=== PATIENT | female | born 1940 | race Caucasian/White ===

== ENCOUNTER 2017-08-03 14:13 | Emergency (ER) | payer MEDICARE, OTHER ==
[~2017-08-03 14:13] MED LIST: BAYER CHEWABLE81 MG PO; CARDIZEM CD120 MG PO; FISH OIL 1,0001 CA1 PO; MACRODANTIN100 MG PO; MULTAQ400 MG PO; PLAVIX75 MG PO; PULMICORT FLEX90 MCG IH; VITAMIN B-625 MG PO
[2017-08-03 16:00] LABS: BASOPHILS 0.1 % (0-2); EOSINOPHILS 0 % (0-7); HEMATOCRIT 39.1 % (36.0-48.0); HEMOGLOBIN 13.1 g/dL (12-16); IMMATURE GRANULOCYTES 0.8 % (0-5); LYMPHOCYTES 6.5 % (15-50); MCH 28.1 pg (26.0-34.0); MCHC 33.5 g/dL (31.0-37.0); MCV 83.9 fL (80.0-100.0); MEAN PLATELET VOLUME 8.4 fL (7.4-10.4); MONOCYTES 2.3 % (2-11); NEUTROPHILS 90.3 % (40-80); PLATELET COUNT 219 10x3/uL (130-400); RBC 4.66 10x6/uL (4.00-5.40); WBC 11.2 10x3/uL (4.8-10.8)
[2017-08-03 16:17] LABS: ALBUMIN 3.6 g/dL (3.4-5.0); ANION GAP 13.6 mmol/L (8-16); BILIRUBIN - TOTAL 0.71 mg/dL (0.2-1.3); CALCIUM 9.1 mg/dL (8.5-10.1); CARBON DIOXIDE 26.5 mmol/L (21.0-32.0); POTASSIUM - SERUM 4.1 mmol/L (3.5-5.1); PROTEIN - SERUM 6.8 g/dL (6.4-8.2)
== END 2017-08-03 17:12 | disposition home or self-care (01) ==
LOC: D.ER 14:13
PROVIDERS: Physician Assistant Medical
DX: J20.9 Acute bronchitis, unspecified (principal); I10 Essential (primary) hypertension

== ENCOUNTER 2017-08-06 10:29 | Emergency (ER) | payer MEDICARE, OTHER ==
[~2017-08-06] VITALS: Ht 167.6 cm; Wt 61.4 kg
[2017-08-06 10:54] VITALS: Ht 167.6 cm; Wt 61.4 kg
[2017-08-06] MEDS ORDERED: LIPITOR10 MG PO (11:01)
[2017-08-06] MEDS ORDERED: METOPROLOL TART25 MG PO (11:01)
[2017-08-06 11:44] LABS: BASOPHILS 0.1 % (0-2); EOSINOPHILS 0.1 % (0-7); HEMOGLOBIN 14.4 g/dL (12-16); IMMATURE GRANULOCYTES 0.7 % (0-5); LYMPHOCYTES 17.3 % (15-50); MCH 28.2 pg (26.0-34.0); MCHC 33.5 g/dL (31.0-37.0); MCV 84.1 fL (80.0-100.0); MEAN PLATELET VOLUME 10.1 fL (7.4-10.4); MONOCYTES 10.9 % (2-11); NEUTROPHILS 70.9 % (40-80); PLATELET COUNT 269 10x3/uL (130-400); RBC 5.11 10x6/uL (4.00-5.40); RDW 14.4 % (11.5-14.5); WBC 15.1 10x3/uL (4.8-10.8)
[2017-08-06 11:46] LABS: INR 0.94 (0.85-1.17); PROTIME 12.2 SECONDS (11.6-15.0)
[2017-08-06 12:16] LABS: ALKALINE PHOSPHATASE 113 U/L (46-116); ALT (SGPT) 28 U/L (10-68); CALC OSMOLALITY 282 mosm/kg (275-300); CALCIUM 9.4 mg/dL (8.5-10.1); CARBON DIOXIDE 24.7 mmol/L (21.0-32.0); CHLORIDE - SERUM 105 mmol/L (98-107); GLUCOSE 100 mg/dL (74-106); POTASSIUM - SERUM 3.3 mmol/L (3.5-5.1); PROTEIN - SERUM 7.1 g/dL (6.4-8.2); SODIUM 140 mmol/L (136-145); UREA NITROGEN 23 mg/dL (7-18); eGFR NON AFRICAN AMERICAN 57 mL/min (90-120)
[2017-08-06 12:21] LABS: APTT < 20.0 SECONDS (22.8-39.4)
[2017-08-06 12:24] LABS: CREATINE KINASE 49 UL (21-215); THYROID STIMULATING HORMONE 1.73 uIU/mL (0.36-3.74); TROPONIN-I < 0.017 ng/mL (0.000-0.060)
[2017-08-06 12:45] LABS: APPEARANCE HAZY (CLEAR); BILIRUBIN NEGATIVE (NEGATIVE); COLOR YELLOW (YELLOW); GLUCOSE NEGATIVE (NEGATIVE); KETONE NEGATIVE (NEGATIVE); NITRITE NEGATIVE (NEGATIVE); PROTEIN NEGATIVE (NEGATIVE); SPECIFIC GRAVITY 1.015 (1.005-1.020); UROBILINOGEN NORMAL (NORMAL)
[2017-08-06] MEDS ORDERED: LEVAQUIN500 MG PO (13:46)
[2017-08-06 14:15] VITALS: BP 154/73
== END 2017-08-06 14:20 | disposition home or self-care (01) ==
LOC: D.ER 10:29
PROVIDERS: Family Medicine
DX: J20.9 Acute bronchitis, unspecified (principal); R05 Cough; R09.89 Other specified symptoms and signs involving the circulatory and respiratory systems; I45.10 Unspecified right bundle-branch block

== ENCOUNTER → 2018-12-09 08:21 | Outpatient (CLI) | payer MEDICARE, BC ==
[2017-08-06 10:54] VITALS: BMI 21.8
[~2018-12-09 08:21] MED LIST changes: +LEVAQUIN500 MG PO; +LIPITOR10 MG PO; +METOPROLOL TART25 MG PO
== END | disposition home or self-care (01) ==
LOC: D.RT 08:21
PROVIDERS: ATTEND Internal Medicine Pulmonary Disease
DX: J45.909 Unspecified asthma, uncomplicated (principal)

== ENCOUNTER 2019-02-19 23:07 | Inpatient (IN) | payer MEDICARE, BC ==
[~2019-02-19] VITALS: Ht 167.6 cm; Wt 62.7 kg
--- NOTE | ~2019-02-19 | EC ---
PATIENT:MARI LUGO DATE OF SERVICE: 02/20/19 SEX: F MEDICAL RECORD: [id number] DATE OF : 40 LOCATION:D. D.211 AGE OF PATIENT: 78 ADMISSION DATE: 02/20/19 REFERRING PHYSICIAN: INTERPRETING PHYSICIAN: JOHNATHAN RAMEY MD ECHOCARDIOGRAM REPORT ECHO CHARGES 4 ECHO COMPLETE Date: 02/21/19 CLINICAL DIAGNOSIS: HTN, CP, HX:ABLATION IN 2012 ECHOCARDIOGRAPHIC MEASUREMENTS (adult normal given) AC root (d.<3.7cm) 2.6 cm LV Septum d (<1.2 cm> 1.3 cm Valve Excursion 1.4 cm LV Septum (systole) 1.7 cm Left Atria (s.<4.0cm> 3.1 cm LVPW d(<1.2cm) 0.9 cm RV (d.<2.3cm) 1.9 cm LVPW (sytole) 1.6 cm LV diastole(<5.6CM) 5.2 cm MV E-F(>70mm/sec) cm LV systole 3.4 cm LVOT Diameter 1.6 cm MV exc.(>10mm) cm Est.ejection fraction (50-75%) % DOPPLER: LVIT cm/sec A 87 cm/sec E 102 cm/sec LA cm/sec RVSP mmHg LVOT 111 cm/sec AOP1/2T 39.9 m/s Asc. Ao 154 cm/sec RVOT 101 cm/sec RA cm/sec PA 101 cm/sec AV Gradient Peak 9.5 mmHg AV Mean 4.6 mmHg AV Area 1.6 cm MV Gradient Peak 7.1 mmHg MV Mean 3.8 mmHg MV Area cm COMMENTS: Teacher Instrumental: Michelle WATERMAN Meter Engineer: 1 Dr. Ramey TAPE# PACS Pericardial Effusion N DATE OF SERVICE: 02/21/2019 FINDINGS: 1. Left ventricular chamber size is within normal limits. Left ventricular systolic function is normal. Overall ejection fraction estimated at 55%. 2. Left atrium, right atrium, right ventricle chamber size is within normal limits. 3. Valvular structures have normal structure and motion. 4. Doppler interrogation reveals trace mitral regurgitation, mild tricuspid regurgitation, no other valvular insufficiency or stenosis. ECHOCARDIOGRAM REPORT [id number] MARI LUGO 5. No evidence of pericardial effusion or left ventricular thrombus. TRANSINT:[id number] Voice Confirmation ID: [id number] DOCUMENT ID: [id number] JOHNATHAN RAMEY MD CC: [id number] DICTATION DATE: 02/21/19 1253 PHOTOGRAPHIC PROCESSOR: 02/21/19 1717 ADM IN [facility] [id number] [place] [address]
[2019-02-19] MEDS ORDERED: ZYRTEC10 MG PO (23:27)
[2019-02-19 23:41] LABS: HEMATOCRIT 38.2 % (36.0-48.0); HEMOGLOBIN 12.4 g/dL (12-16); LYMPHOCYTES 10.2 % (15-50); MCH 27.3 pg (26.0-34.0); MCHC 32.5 g/dL (31.0-37.0); MCV 84.1 fL (80.0-100.0); MEAN PLATELET VOLUME 7.9 fL (7.4-10.4); NEUTROPHILS 85.6 % (40-80); PLATELET COUNT 272 10x3/uL (130-400); RBC 4.54 10x6/uL (4.00-5.40); RDW 14.2 % (11.5-14.5); WBC 11.5 10x3/uL (4.8-10.8)
[2019-02-19 23:46] LABS: CALC OSMOLALITY 282 mosm/kg (275-300); CALCIUM 8.8 mg/dL (8.5-10.1); CARBON DIOXIDE 24.4 mmol/L (21.0-32.0); CHLORIDE - SERUM 103 mmol/L (98-107); GLUCOSE 147 mg/dL (74-106); POTASSIUM - SERUM 3.7 mmol/L (3.5-5.1); SODIUM 139 mmol/L (136-145); UREA NITROGEN 19 mg/dL (7-18); eGFR NON AFRICAN AMERICAN 57 mL/min (90-120)
[2019-02-19 23:47] LABS: APTT 25.1 SECONDS (22.8-39.4); INR 1.07 (0.85-1.17); PROTIME 13.4 SECONDS (11.6-15.0)
[2019-02-20 00:05] LABS: ALBUMIN 3.4 g/dL (3.4-5.0); ALKALINE PHOSPHATASE 125 U/L (46-116); ALT (SGPT) 30 U/L (10-68); BILIRUBIN - TOTAL 0.63 mg/dL (0.2-1.3); CKMB 1.6 U/L (0.0-3.6); CREATINE KINASE 69 UL (21-215); PRO BNP 775 pg/mL (0-450); PROTEIN - SERUM 6.2 g/dL (6.4-8.2); TROPONIN-I < 0.017 ng/mL (0.000-0.060)
--- NOTE | 2019-02-20 01:14 | NUR ---
PT AMBULATED TO RESTROOM INDEPENDENTLY.
[2019-02-20 02:30] VITALS: BP 155/52; BMI 22.3
[2019-02-20 04:00] VITALS: BP 155/52
[2019-02-20 06:49] LABS: CKMB 1.4 U/L (0.0-3.6); CREATINE KINASE 55 UL (21-215); TROPONIN-I < 0.017 ng/mL (0.000-0.060)
--- NOTE | 2019-02-20 07:28 | NUR ---
REPORT RECEIVED FROM BUS DRIVER SCHOOL AND PATIENT CARE ASSUMED. PATIENT LAYING IN BED ON BACK AWAKE, ALERT AND ORIENTED X 4. PATIENT DENIES ANY NEEDS OR PAIN. PATIENT IS NPO AWAINTING CARDIOLOGY CONSULT. WILL CONTINUE WITH PLAN OF CARE. SR UP X 2 BED IN LOW POSITION AND CALL LIGHT IN REACH.
[2019-02-20 09:16] VITALS: Ht 167.6 cm; Wt 62.7 kg
[2019-02-20 10:39] VITALS: BP 153/68
[2019-02-20 11:55] LABS: CKMB 1.3 U/L (0.0-3.6); CREATINE KINASE 53 UL (21-215); TROPONIN-I < 0.017 ng/mL (0.000-0.060)
--- NOTE | 2019-02-20 13:00 | NUR ---
CALLED TO PATIENT ROOM. PATIENT COMPLAINS OF A HEADACHE AT A 8. VSS. MEDICATED PER MAR WITH TYLENOL 650 MG PO. PATIENT REPOSITIONED FOR COMFORT. AT BS. WILL CONTINUE TO MONITOR. SR UP X 2 BED IN LOW POSITION AND CALL LIGHT IN REACH.
[2019-02-20 13:19] VITALS: BP 136/51
--- NOTE | 2019-02-20 14:12 | NUR ---
PATIENT RESTING QUIETLY IN BED. WILL CONTINUE TO MONITOR. SR UP X 2 BED IN LOW POSITION AND CALL LIGHT IN REACH.
[2019-02-20 17:56] LABS: CREATINE KINASE 51 UL (21-215); TROPONIN-I 0.016 ng/mL (0.000-0.060)
[2019-02-20 18:10] VITALS: BP 138/51
--- NOTE | 2019-02-20 19:49 | NUR ---
RECEIVED BEDSIDE REPORT. PATIENT IS ALERT AND ORIENTED, RESTING COMFORTABLY I BED. RESPIRATIONS ARE EVEN AND UNLABORED. NO S/S OF DISTRESS. NO C/O PAIN. CALL LIGHT WITHIN REACH. DENIES NEEDS. WILL CPOC.
[2019-02-20 20:00] VITALS: BP 136/63
[2019-02-21] VITALS: BP 147/56
[2019-02-21 04:00] VITALS: BP 145/50
[2019-02-21 05:23] LABS: BASOPHILS 0.1 % (0-2); EOSINOPHILS 0.7 % (0-7); HEMATOCRIT 33.9 % (36.0-48.0); HEMOGLOBIN 10.9 g/dL (12-16); IMMATURE GRANULOCYTES 0.4 % (0-5); LYMPHOCYTES 27.5 % (15-50); MCH 27.1 pg (26.0-34.0); MCHC 32.2 g/dL (31.0-37.0); MCV 84.3 fL (80.0-100.0); MEAN PLATELET VOLUME 7.9 fL (7.4-10.4); MONOCYTES 13.6 % (2-11); NEUTROPHILS 57.7 % (40-80); RBC 4.02 10x6/uL (4.00-5.40); RDW 14.2 % (11.5-14.5)
[2019-02-21 05:31] LABS: PLATELET COUNT 187 10x3/uL (130-400); WBC 8.4 10x3/uL (4.8-10.8)
[2019-02-21 05:34] LABS: ANION GAP 11.3 mmol/L (8-16); CALCIUM 8.1 mg/dL (8.5-10.1); CARBON DIOXIDE 25.5 mmol/L (21.0-32.0); CREATININE - SERUM 0.8 mg/dL (0.6-1.3); POTASSIUM - SERUM 3.8 mmol/L (3.5-5.1)
--- NOTE | 2019-02-21 08:15 | NUR ---
PATIENT COMPLAINS OF A HEADACHE AT A 10 AND REQUESTING TYLENOL. PATIENT MEDICATED PER MAY WITH TYLENOL 650 MG PO. WILL CONTINUE TO MONITOR. SR UP X 2 BED IN LOW POSITION AND CALL LIGHT IN REACH.
[2019-02-21 09:06] VITALS: BP 158/52
--- NOTE | 2019-02-21 14:24 | NUR ---
PATIENT UP TO BR . GOT URINE SPECIMEN. PATIENT IS STABLE AND VSS. PATIENT DENIES ANY NEEDS OR PAIN. WILL CONTINUE TO MONITOR. SR UP X 2 BED IN LOW POSITION AND CALL LIGHT IN REACH.
[2019-02-21 14:25] LABS: APPEARANCE HAZY (CLEAR); COLOR YELLOW (YELLOW)
[2019-02-21 14:26] LABS: BILIRUBIN NEGATIVE (NEGATIVE); GLUCOSE NEGATIVE (NEGATIVE); KETONE NEGATIVE (NEGATIVE); NITRITE NEGATIVE (NEGATIVE); PROTEIN NEGATIVE (NEGATIVE); UROBILINOGEN NORMAL (NORMAL)
[2019-02-21 17:19] VITALS: BP 132/53
--- NOTE | 2019-02-21 19:30 | NUR ---
REPORT AND INITIAL ROUNDS COMPLETED. PT RESTING IN BED. NO DISTRESS. CPOC.
[2019-02-21 20:30] VITALS: BP 137/45
[2019-02-22 00:30] VITALS: BP 123/34
--- NOTE | 2019-02-22 06:39 | NUR ---
PT RESTING IN BED WITH NO DISTRESS. NO CHANGE FROM INITIAL SHIFT ASSESSMENT. CPOC. REPORT TO ONCOMING SHIFT.
[2019-02-22 06:42] VITALS: BP 146/54
[2019-02-22 07:01] LABS: BASOPHILS 0 % (0-2); EOSINOPHILS 1.3 % (0-7); HEMATOCRIT 36.2 % (36.0-48.0); HEMOGLOBIN 11.7 g/dL (12-16); IMMATURE GRANULOCYTES 0.3 % (0-5); MCH 27.3 pg (26.0-34.0); MCHC 32.3 g/dL (31.0-37.0); MCV 84.6 fL (80.0-100.0); MEAN PLATELET VOLUME 8.2 fL (7.4-10.4); MONOCYTES 15.8 % (2-11); NEUTROPHILS 51.6 % (40-80); PLATELET COUNT 213 10x3/uL (130-400); RBC 4.28 10x6/uL (4.00-5.40); RDW 14.4 % (11.5-14.5); WBC 6.4 10x3/uL (4.8-10.8)
[2019-02-22 07:02] LABS: ANION GAP 11.3 mmol/L (8-16); CALCIUM 8.6 mg/dL (8.5-10.1); CARBON DIOXIDE 26.5 mmol/L (21.0-32.0); CREATININE - SERUM 0.8 mg/dL (0.6-1.3); POTASSIUM - SERUM 3.8 mmol/L (3.5-5.1)
--- NOTE | 2019-02-22 07:10 | NUR ---
REPORT RECEVED FROM MOTOR ANALYST AND PATIENT CARE ASSUMED. PATIENT LAYING IN BED ON RT SIDE WITH EYES CLOSED AND BREATHING EVENLY. WILL CONTINUE WITH PLAN OF CARE . SR UP X 2 BED IN LOW POSITION AND CALL LIGHT IN REACH.
[2019-02-22 08:06] VITALS: BP 152/47
--- NOTE | 2019-02-22 14:38 | NUR ---
ORDERS RECEIEVED FOR DC. PATIENT IS STABLE AND VSS. PATIENT DENIES ANY NEEDS OR PAIN. WRITTEN AND VERBAL INSTRUCTIONS GIVEN PATIENT VERBALIZED UNDERSTANDING AND SIGNED DC INSTRUCTIONS. IV DCD WITHOUT DIFFICULTY WITH ENTIRE CATHETER INTACT. PRESSURE DRSG APPLIED. PATIENT IS DCD HOME FOR SELF CARE. PATIENT TO FRONT DOOR VIA WC AND ACCOMPATIED BY HOSPITAL PERSONNEL. PATIENT TO PRIVATE VEHICLE DRIVEN BY SPOUSE.
[2019-02-24 11:09] LABS: ANA REFLEX - DIRECT Negative (Negative); IMMUNOGLOBULIN A 82 mg/dL (64-422); IMMUNOGLOBULIN G 561 mg/dL (700-1600)
[2019-02-25 05:08] LABS: IGG SUBCLASS 1 303 mg/dL (248-810); IGG SUBCLASS 2 144 mg/dL (130-555); IGG SUBCLASS 3 22 mg/dL (15-102); IGG SUBCLASS 4 18 mg/dL (2-96); IGGS - IGG SERUM 583 mg/dL (700-1600)
[2019-02-26 03:06] LABS: IMMUNOGLOBULIN E 13 IU/mL (6-495)
== END 2019-02-22 14:44 | disposition home or self-care (01) | DRG 202 ==
LOC: D.ER 23:07 → D.M2 02-20 01:20 → OBSVTIME 02-20 01:20 → D.M2 02-20 01:20 → D.SDCHOLD 02-20 14:41 → D.M2 02-20 14:41
PROVIDERS: Family Medicine; Internal Medicine Pulmonary Disease; ADMIT Internal Medicine Nephrology; ATTEND Internal Medicine Nephrology
DX: J20.9 Acute bronchitis, unspecified (principal); N17.9 Acute kidney failure, unspecified; I48.0 Paroxysmal atrial fibrillation; I10 Essential (primary) hypertension; E78.5 Hyperlipidemia, unspecified; E03.9 Hypothyroidism, unspecified; K21.9 Gastro-esophageal reflux disease without esophagitis; R53.1 Weakness; T36.8X5A Adverse effect of other systemic antibiotics, initial encounter

== ENCOUNTER → 2019-07-22 12:51 | Outpatient (CLI) | payer MEDICARE, BC ==
[2019-02-20 09:16] VITALS: BMI 22.3
[~2019-07-22 12:51] MED LIST changes: +ZYRTEC10 MG PO
== END | disposition home or self-care (01) ==
LOC: D.LABREF 12:51
PROVIDERS: ATTEND Internal Medicine Pulmonary Disease
DX: Z11.59 Encounter for screening for other viral diseases (principal)

== ENCOUNTER → 2019-07-23 11:11 | Outpatient (CLI) | payer MEDICARE, BC ==
[2019-02-20 09:16] VITALS: BMI 22.3
[2019-07-23 12:17] LABS: ALBUMIN 3.8 g/dL (3.4-5.0); ALKALINE PHOSPHATASE 137 U/L (30-120); ALT (SGPT) 27 U/L (10-68); BILIRUBIN - TOTAL 0.59 mg/dL (0.2-1.3); CALC OSMOLALITY 279 mosm/kg (275-300); CALCIUM 9.2 mg/dL (8.5-10.1); CHLORIDE - SERUM 105 mmol/L (98-107); CREATININE - SERUM 0.7 mg/dL (0.6-1.3); GLUCOSE 102 mg/dL (74-106); PROTEIN - SERUM 6.9 g/dL (6.4-8.2); SODIUM 140 mmol/L (136-145); UREA NITROGEN 16 mg/dL (7-18); eGFR NON AFRICAN AMERICAN 85 mL/min (90-120)
[2019-07-23 13:13] LABS: BASOPHILS 0.3 % (0-2); EOSINOPHILS 5.2 % (0-7); HEMATOCRIT 37.6 % (36.0-48.0); HEMOGLOBIN 11.8 g/dL (12-16); IMMATURE GRANULOCYTES 0.2 % (0-5); LYMPHOCYTES 33.8 % (15-50); MCHC 31.4 g/dL (31.0-37.0); MEAN PLATELET VOLUME 8.6 fL (7.4-10.4); MONOCYTES 10.8 % (2-11); NEUTROPHILS 49.7 % (40-80); RBC 4.37 10x6/uL (4.00-5.40); RDW 13.1 % (11.5-14.5); WBC 6.1 10x3/uL (4.8-10.8)
[2019-07-23 13:18] LABS: PLATELET COUNT 308 10x3/uL (130-400)
[2019-07-23 14:40] LABS: ERYTHROCYTE SEDIMENTATION RATE 9 mm/hr (0-30)
== END | disposition home or self-care (01) ==
LOC: D.HCCECHO 11:11
PROVIDERS: ATTEND Internal Medicine Cardiovascular Disease
DX: R06.00 Dyspnea, unspecified (principal); J45.909 Unspecified asthma, uncomplicated; D80.1 Nonfamilial hypogammaglobulinemia; N31.9 Neuromuscular dysfunction of bladder, unspecified; N30.31 Trigonitis with hematuria; N30.21 Other chronic cystitis with hematuria

== ENCOUNTER 2019-11-08 14:22 | Emergency (ER) | payer MEDICARE, BC ==
[~2019-11-08] VITALS: Ht 167.6 cm; Wt 60.0 kg
[2019-11-08 14:28] VITALS: Ht 167.6 cm; Wt 60.0 kg
[2019-11-08 15:04] LABS: BASOPHILS 0.2 % (0-2); EOSINOPHILS 1.8 % (0-7); HEMATOCRIT 36.2 % (36.0-48.0); IMMATURE GRANULOCYTES 0.2 % (0-5); LYMPHOCYTES 35.5 % (15-50); MCH 28.3 pg (26.0-34.0); MCHC 33.1 g/dL (31.0-37.0); MCV 85.4 fL (80.0-100.0); MEAN PLATELET VOLUME 8.1 fL (7.4-10.4); MONOCYTES 11.4 % (2-11); NEUTROPHILS 50.9 % (40-80); PLATELET COUNT 255 10x3/uL (130-400); RBC 4.24 10x6/uL (4.00-5.40); RDW 13.2 % (11.5-14.5)
[2019-11-08 15:12] LABS: APTT 27.3 SECONDS (22.8-39.4); CALC OSMOLALITY 282 mosm/kg (275-300); CALCIUM 9.7 mg/dL (8.5-10.1); CHLORIDE - SERUM 105 mmol/L (98-107); CREATININE - SERUM 0.9 mg/dL (0.6-1.3); GLUCOSE 112 mg/dL (74-106); INR 1.05 (0.85-1.17); PROTIME 13.6 SECONDS (11.6-15.0); SODIUM 141 mmol/L (136-145); UREA NITROGEN 16 mg/dL (7-18); eGFR NON AFRICAN AMERICAN 64 mL/min (90-120)
[2019-11-08 15:29] LABS: ALKALINE PHOSPHATASE 117 U/L (30-120); ALT (SGPT) 27 U/L (10-68); BILIRUBIN - TOTAL 0.95 mg/dL (0.2-1.3); CKMB 0.9 U/L (0.0-3.6); CREATINE KINASE 66 UL (21-215); MAGNESIUM - SERUM 1.6 mg/dL (1.8-2.4); PROTEIN - SERUM 6.8 g/dL (6.4-8.2)
[2019-11-08 15:42] LABS: TROPONIN-I < 0.017 ng/mL (0.000-0.060)
[2019-11-08] MEDS ORDERED: COZAAR50 MG PO (16:13)
[2019-11-08 16:55] VITALS: BP 121/55
== END 2019-11-08 16:55 | disposition home or self-care (01) ==
LOC: D.ER 14:22
PROVIDERS: Family Medicine
DX: I10 Essential (primary) hypertension (principal); R42 Dizziness and giddiness; J45.909 Unspecified asthma, uncomplicated; E03.9 Hypothyroidism, unspecified; K21.9 Gastro-esophageal reflux disease without esophagitis; R06.02 Shortness of breath; R07.89 Other chest pain

== ENCOUNTER 2019-11-14 19:17 | Inpatient (IN) | payer MEDICARE, BC ==
[~2019-11-14] VITALS: Ht 167.6 cm; Wt 58.2 kg
--- NOTE | ~2019-11-14 | CN ---
PATIENT NAME:MARI LUGO MEDICAL RECORD: [id number] : 40 LOCATION:D. D.2116 ADMIT DATE: 11/14/19 ACCOUNT: [id number] CONSULTING PHYSICIAN: SASKIA JOSHI MD REFERRING PHYSICIAN: CHRIS EUCEDA MD DATE OF CONSULTATION: 11/15/2019 HISTORY OF PRESENT ILLNESS: A 79-year-old female with a history of atrial fibrillation status post ablation 7 years ago. She has had onset of AFib symptomology on the day of admission. Has been using her updrafts as well as self-restricting her own potassium intake secondary to reading inserts of her Cozaar that caused that has hyperkalemia may be a problem. Found to be in AFib with rapid ventricular response. Currently, back in sinus rhythm, at this point feels well. We are asked to see her concerning her cardiovascular status. PAST MEDICAL HISTORY: Includes; 1. History of hypertension. 2. Atrial fibrillation. 3. Dyslipidemia. 4. Obstructive pulmonary disease. MEDICATIONS: Include losartan 50 mg p.o. every day, atorvastatin 10 mg p.o. every day, metoprolol 25 every day, Multaq 400 b.i.d., Zyrtec 10 every day, Pulmicort inhaler 80 mcg b.i.d. ALLERGIES: No allergies. SOCIAL HISTORY: Nonsmoker, nondrinker. Easily takes care of her ADLs. Does exercise on a regular basis. REVIEW OF SYSTEMS: The patient reports easy bruising but reports no swollen glands. The patient reports no fever, no night sweats, no significant weight gain, no significant weight loss. No significant exercise tolerance. The patient reports no dry eyes, no irritation, no vision change. Patient reports no difficulty hearing and no ear pain. Patient reports no frequent nose bleeds or nose and sinus problems. Patient reports on arm pain on exertion. No shortness of breath while lying down. No history of heart murmur. Patient reports no cough, no wheezing or coughing up blood. Patient reports no abdominal pain, no vomiting. Normal appetite. No diarrhea and not vomiting blood. No nausea and no constipation. Patient reports no incontinence. No difficulty urinating. No hematuria. No increased frequency. Patient reports no muscle aches. No weakness, no arthralgias, no back pain. No swelling of the extremities. Patient reports no abnormal mole, no jaundice, no rashes. Reports no loss of consciousness. No weakness and no numbness. No seizures, dizziness, or headaches. The patient reports no depression, no sleep disturbance, feeling safe in a relationship and no alcohol abuse. Patient reports on fatigue. Reports no runny nose or sinus pressure. No itching, no hives, and no frequent sneezing. PHYSICAL EXAMINATION: GENERAL: Well-developed, well-nourished, appears younger than stated age. VITAL SIGNS: Blood pressure 134/52, pulse 71 and regular. HEENT: Normocephalic, atraumatic. NECK: No bruits noted. HEART: Regular. A II/ systolic ejection murmur. CONSULT REPORT [id number] MARI LUGO LUNGS: Good air excursion at this point. ABDOMEN: Soft, nontender. EXTREMITIES: Pulses 2+ with no edema. IMPRESSION: Atrial fibrillation, probably related to hypokalemia, self-induced at this point, really no diarrhea or losses of potassium, this is normal. At this point, we will supplement orally at home. No contraindication to discharge from my standpoint. TRANSINT:[id number] Voice Confirmation ID: [id number] DOCUMENT ID: [id number] SASKIA JOSHI MD CC: [id number] DICTATION DATE: 11/15/19 1023 PIT FURNACE MELTER: 11/15/19 1505 DIS IN 11/15/19 [facility] [address] [place] [address]
[~2019-11-14 19:17] MED LIST changes: +COZAAR50 MG PO
[2019-11-14 19:48] LABS: BASOPHILS 0.3 % (0-2); EOSINOPHILS 2.4 % (0-7); HEMATOCRIT 38.8 % (36.0-48.0); HEMOGLOBIN 13.1 g/dL (12-16); IMMATURE GRANULOCYTES 0.3 % (0-5); LYMPHOCYTES 39.6 % (15-50); MCH 28.2 pg (26.0-34.0); MCHC 33.8 g/dL (31.0-37.0); MCV 83.4 fL (80.0-100.0); MEAN PLATELET VOLUME 8.1 fL (7.4-10.4); MONOCYTES 8.9 % (2-11); NEUTROPHILS 48.5 % (40-80); PLATELET COUNT 238 10x3/uL (130-400); RBC 4.65 10x6/uL (4.00-5.40); WBC 7.4 10x3/uL (4.8-10.8)
[2019-11-14 19:58] LABS: CALC OSMOLALITY 272 mosm/kg (275-300); CALCIUM 9.8 mg/dL (8.5-10.1); CHLORIDE - SERUM 101 mmol/L (98-107); CREATININE - SERUM 0.9 mg/dL (0.6-1.3); GLUCOSE 108 mg/dL (74-106); SODIUM 135 mmol/L (136-145); UREA NITROGEN 17 mg/dL (7-18); eGFR NON AFRICAN AMERICAN 64 mL/min (90-120)
[2019-11-14 19:59] LABS: APTT 25.3 SECONDS (22.8-39.4)
[2019-11-14 20:00] LABS: D-DIMER-QUANTITATIVE 0.39 ug/mLFEU (0.20-0.54)
[2019-11-14 20:03] LABS: INR 0.94 (0.85-1.17); PROTIME 12.5 SECONDS (11.6-15.0)
[2019-11-14 20:16] LABS: ALBUMIN 4.3 g/dL (3.4-5.0); ALKALINE PHOSPHATASE 137 U/L (30-120); ALT (SGPT) 28 U/L (10-68); BILIRUBIN - TOTAL 0.63 mg/dL (0.2-1.3); CREATINE KINASE 67 UL (21-215); MAGNESIUM - SERUM 1.5 mg/dL (1.8-2.4); PRO BNP 276 pg/mL (0-450); PROTEIN - SERUM 7.4 g/dL (6.4-8.2); TROPONIN-I < 0.017 ng/mL (0.000-0.060)
[2019-11-14 20:30] VITALS: BP 153/66
--- NOTE | 2019-11-14 20:44 | NUR ---
PT ASSISTED UP TO BEDSIDE COMMODE AND URINE SPECIMEN SENT TO LAB. PT DENIES ANY FURTHER NEEDS AT THIS TIME, CALL LIGHT IN REACH. WILL CONTINUE TO MONITOR.
[2019-11-14 21:39] LABS: BILIRUBIN NEGATIVE (NEGATIVE); KETONE NEGATIVE (NEGATIVE); NITRITE NEGATIVE (NEGATIVE); UROBILINOGEN NORMAL mg/dL (< 2)
--- NOTE | 2019-11-14 22:06 | NUR ---
REPORT CALLED FROM ER. PT WILL BE ON CARDIZEM DRIP AND CURRENTLY IS CAF '.
--- NOTE | 2019-11-14 22:15 | NUR ---
ADMIT TO ROOM 2115 FROM ER. ALERT/ORIENTED. HAS GONE HOME FOR THE NIGHT. AMBULATORY TO BED. CARDIZEM DRIP AT 10ML/HR INFUSING TO RIGHT WRIST. NONLABORED RESPIRATIONS ON ROOM AIR. ADMISSION HISTORY AND ASSESSMENT COMPLETED. HOME MEDS REVIEWED AND UPDATED. ERICK MACE APRN IN ROOM TO ASSESS.
[2019-11-14 22:50] VITALS: BP 126/70
--- NOTE | 2019-11-14 23:00 | NUR ---
PT RESTING WITH NO DISTRESS. TELEMETRY SHOWING U/CAF 90-115. CPOC.
[2019-11-14 23:24] VITALS: BP 126/70; Ht 167.6 cm; Wt 58.2 kg
[2019-11-15 02:07] VITALS: BP 119/46
[2019-11-15 04:39] LABS: BASOPHILS 0.3 % (0-2); EOSINOPHILS 2.6 % (0-7); HEMOGLOBIN 11.2 g/dL (12-16); IMMATURE GRANULOCYTES 0.2 % (0-5); MCH 28.3 pg (26.0-34.0); MCHC 33.9 g/dL (31.0-37.0); MCV 83.3 fL (80.0-100.0); MEAN PLATELET VOLUME 8.1 fL (7.4-10.4); MONOCYTES 11.5 % (2-11); NEUTROPHILS 50.4 % (40-80); PLATELET COUNT 243 10x3/uL (130-400); RBC 3.96 10x6/uL (4.00-5.40); RDW 13.2 % (11.5-14.5); WBC 6.2 10x3/uL (4.8-10.8)
[2019-11-15 05:08] LABS: ALBUMIN 3.3 g/dL (3.4-5.0); ALKALINE PHOSPHATASE 99 U/L (30-120); ALT (SGPT) 23 U/L (10-68); BILIRUBIN - TOTAL 0.78 mg/dL (0.2-1.3); CALC OSMOLALITY 279 mosm/kg (275-300); CALCIUM 8.8 mg/dL (8.5-10.1); CARBON DIOXIDE 22.1 mmol/L (21.0-32.0); CHLORIDE - SERUM 106 mmol/L (98-107); CHOL - HDL RATIO 2.2 ratio (2.3-4.1); CHOLESTEROL, TOTAL 134 mg/dL (0-200); CKMB 0.8 U/L (0.0-3.6); CREATINE KINASE 50 UL (21-215); CREATININE - SERUM 0.7 mg/dL (0.6-1.3); GLUCOSE 114 mg/dL (74-106); HDL CHOLESTEROL 61 mg/dL (32-96); LDL CHOLESTEROL 65 mg/dL (0-100); LDL-HDL RATIO 1.1 ratio (1.5-3.5); MAGNESIUM - SERUM 1.5 mg/dL (1.8-2.4); PHOSPHOROUS 4.1 mg/dL (2.5-4.9); PROTEIN - SERUM 5.8 g/dL (6.4-8.2); SODIUM 139 mmol/L (136-145); THYROID STIMULATING HORMONE 1.13 uIU/mL (0.36-3.74); TRIGLYCERIDE 44 mg/dL (30-200); UREA NITROGEN 15 mg/dL (7-18); eGFR NON AFRICAN AMERICAN 85 mL/min (90-120)
[2019-11-15 05:10] LABS: POTASSIUM - SERUM 3.8 mmol/L (3.5-5.1); TROPONIN-I < 0.017 ng/mL (0.000-0.060)
[2019-11-15 05:51] VITALS: BP 113/44
[2019-11-15 07:00] VITALS: BP 134/52
--- NOTE | 2019-11-15 09:20 | NUR ---
CALLED [facility] AND SPOKE WITH ITFFANIE PHARMACIST, NEW ORDER FOR 10MEQ OF K.
--- NOTE | 2019-11-15 11:26 | NUR ---
MAG GIVEN FOR LOW MAG. PT RESTING COMFORTABLY IN BED, DENIES ANY NEEDS AT THIS TIME. MONITOR SHOWING SR WITH RATE OF 72. RT FA IV SL. RESP EVEN AND NONLABORED ON RA. CALL LIGHT IN REACH, NAD NTOED, WILL CONTINUE TO MONITOR.
--- NOTE | 2019-11-15 12:53 | MORECARE ---
CASE MANAGEMENT DISCHARGE SUMMARY PATIENT: MARI PANDEY UNIT: [id number] ADM DATE: 11/14/19 AGE: 79 : 40 SEX: F ROOM/BED: D.9143 AUTHOR: WU,DOC PHYSICIAN: REFERRING PHYSICIAN: CHRIS EUCEDA MD DATE OF SERVICE: 11/15/19 Discharge Plan Patient Name: MARI PANDEY Facility: [facility]:[place] : 1940 Planned Disposition: Home Anticipated Discharge Date: 11/15/19 Discharge Date: Expected LOS: 1 Initial Reviewer: HUSSAIN Initial Review Date: 11/14/2019 Generated: 11/15/19 1:52 pm DCP- Discharge Planning Updated by [email or web address]: Emigdio Tiwari on 11/15/19 11:[address] Patient Name: MARI PANDEY Admission Status: ER Accout number: [id number] Admission Date: 11-14-2019 : 1940 Admission Diagnosis: Attending: SINDHU Current LOS: 1 Anticipated DC Date: Planned Disposition: Primary Insurance: MEDICARE A & B Discharge Planning Comments: CM met with patient to complete initial dc planning assessment. CM educated patient on the CM role and verbal consent given by patient to complete assessment. CM verified patient's address, phone number, and emergency contact phone numbers. Patient lives at home with spouse, Vinny Pandey. At discharge patient plans to return home and feels this is a safe discharge. CM discussed availability of home health, rehab services, and medical equipment. Patient declines HH services at this time as well as DME, SNF, and IPR. No other needs identified at this time. Transportation provider at discharge will be her , Vinny Pandey [phone] or [phone]. CM will continue to follow and will assist as needed with dc plans/needs. Metal Treater: Emigdio Tiwari DCPIA - Discharge Planning Initial Assessment Updated by [id number]: Emigdio Tiwari on 11/15/19 12:51 pm * Is the patient Alert and Oriented? Yes * How many steps to enter\exit or inside your home? 3/2 * PCP Shayan Kaur * Pharmacy [facility] * Preadmission Environment Home with Family * ADLs Independent * Equipment Nebulizer * List name and contact numbers for known caregivers / representatives who currently or will assist patient after discharge: Vinny Pandey [phone] / [phone] * Verbal permission to speak to the caregivers and representatives has been obtained from the patient. Yes * Community resources currently utilized None * Additional services required to return to the preadmission environment? No * Can the patient safely return to the preadmission environment? Yes * Has this patient been hospitalized within the prior 30 days at any hospital? No Coverage Notice Reviewer: HUSSAIN Tiwari Notice Issued Date-Time: 11/15/2019 12:35 Notice Type: IM Discharge Notice Notice Delivered To: Patient Relationship to Patient: Cdl Dedicated Truck Driver Name: Delivery Method: HAND - Hand Delivered Bhavna Days: Prior Verbal Notification: Recipient Understood Notice: Yes Recipient Signature: Yes Med Rec Note Co-signed by Attending: Coverage Notice Comment: IMM Explained, understood, signed, copied and given to patient, original placed on chart. Reviewer: [id number] Tiwari Notice Issued Date-Time: 11/15/2019 12:35 Notice Type: Patient Choice Letter Notice Delivered To: Patient Relationship to Patient: Cdl Dedicated Truck Driver Name: Delivery Method: HAND - Hand Delivered Bhavna Days: Prior Verbal Notification: Recipient Understood Notice: Yes Recipient Signature: Yes Med Rec Note Co-signed by Attending: Coverage Notice Comment: Refusal of HH, IPR, SNF, and DME Patient Name: MARI PANDEY Page [phone] at 1253 All edits/amendments must be made on the electronic document DICTATION DATE: 11/15/19 1252 COMPLIANCE MGR: BIJAL 11/15/19 1252 RPT#: [id number] DC DATE: STATUS: ADM IN [facility] [address] [place] [address] END OF REPORT
--- NOTE | 2019-11-15 13:16 | NUR ---
PROVIDED VERBAL AND WRITTEN DISCHARGE TEACHING TO PT WHO VERBALIZED UNDERSTANDING REGARDING TEACHING. D/C RT FA IV WITH CATHETER TIP INTACT. HEART MONITOR REMOVED AND TAKEN TO MEAT CURER. PT WAITING ON RIDE, WILL NOTIFY NURSE WHEN READY FOR WHEELCHAIR.
--- NOTE | 2019-11-15 15:23 | NUR ---
PT LEFT UNIT VIA WHEELCHAIR, WITH ALL BELONGINGS, NAD NOTED.
[2019-11-16] MEDS ORDERED: SINGULAIR10 MG PO (20:53)
--- NOTE | 2019-11-17 12:31 | MORECARE ---
CASE MANAGEMENT DISCHARGE SUMMARY PATIENT: MARI PANDEY UNIT: [id number] ADM DATE: 11/14/19 AGE: 79 : 40 SEX: F ROOM/BED: D.2189 AUTHOR: WU,DOC PHYSICIAN: REFERRING PHYSICIAN: CHRIS EUCEDA MD DATE OF SERVICE: 11/17/19 Discharge Plan Patient Name: MARI PANDEY Facility: [facility]:[place] : 1940 Planned Disposition: Home Anticipated Discharge Date: 11/15/19 Discharge Date: 11/15/2019 Expected LOS: 1 Initial Reviewer: HUSSAIN Initial Review Date: 11/14/2019 Generated: 11/17/19 1:31 pm DCP- Discharge Planning Updated by [email or web address]: Emigdio Tiwari on 11/15/19 11:[address] Patient Name: MARI PANDEY Admission Status: ER Accout number: [id number] Admission Date: 11-14-2019 : 1940 Admission Diagnosis: Attending: SINDHU Current LOS: 1 Anticipated DC Date: Planned Disposition: Primary Insurance: MEDICARE A & B Discharge Planning Comments: CM met with patient to complete initial dc planning assessment. CM educated patient on the CM role and verbal consent given by patient to complete assessment. CM verified patient's address, phone number, and emergency contact phone numbers. Patient lives at home with spouse, Vinny Pandey. At discharge patient plans to return home and feels this is a safe discharge. CM discussed availability of home health, rehab services, and medical equipment. Patient declines HH services at this time as well as DME, SNF, and IPR. No other needs identified at this time. Transportation provider at discharge will be her , Vinny Pandey [phone] or [phone]. CM will continue to follow and will assist as needed with dc plans/needs. Hostler Helper: Emigdio Tiwari DCPIA - Discharge Planning Initial Assessment Updated by [id number]: Emigdio Tiwari on 11/15/19 12:51 pm * Is the patient Alert and Oriented? Yes * How many steps to enter\exit or inside your home? 3/2 * PCP Shayan Kaur * Pharmacy [facility] * Preadmission Environment Home with Family * ADLs Independent * Equipment Nebulizer * List name and contact numbers for known caregivers / representatives who currently or will assist patient after discharge: Vinny Pandey [phone] / [phone] * Verbal permission to speak to the caregivers and representatives has been obtained from the patient. Yes * Community resources currently utilized None * Additional services required to return to the preadmission environment? No * Can the patient safely return to the preadmission environment? Yes * Has this patient been hospitalized within the prior 30 days at any hospital? No Coverage Notice Reviewer: HUSSAIN Tiwari Notice Issued Date-Time: 11/15/2019 12:35 Notice Type: IM Discharge Notice Notice Delivered To: Patient Relationship to Patient: Chief Controller Name: Delivery Method: HAND - Hand Delivered Bhavna Days: Prior Verbal Notification: Recipient Understood Notice: Yes Recipient Signature: Yes Med Rec Note Co-signed by Attending: Coverage Notice Comment: IMM Explained, understood, signed, copied and given to patient, original placed on chart. Reviewer: [id number] Tiwari Notice Issued Date-Time: 11/15/2019 12:35 Notice Type: Patient Choice Letter Notice Delivered To: Patient Relationship to Patient: Chief Controller Name: Delivery Method: HAND - Hand Delivered Bhavna Days: Prior Verbal Notification: Recipient Understood Notice: Yes Recipient Signature: Yes Med Rec Note Co-signed by Attending: Coverage Notice Comment: Refusal of HH, IPR, SNF, and DME Last DP export: 11/15/19 11:53 a Patient Name: MARI PANDEY Page [phone] at 1231 All edits/amendments must be made on the electronic document DICTATION DATE: 11/17/19 1231 LEGAL ADMINISTRATOR: BIJAL 11/17/19 1231 RPT#: [id number] DC DATE:11/15/19 STATUS: DIS IN [facility] [address] [place] [address] END OF REPORT
== END 2019-11-15 15:23 | disposition home or self-care (01) | DRG 641 ==
LOC: D.ER 19:17 → D.M2 21:33
PROVIDERS: Family Medicine; ADMIT Family Medicine; ATTEND Family Medicine
DX: E87.6 Hypokalemia (principal); I48.91 Unspecified atrial fibrillation; E83.42 Hypomagnesemia; I10 Essential (primary) hypertension; E78.5 Hyperlipidemia, unspecified; M19.90 Unspecified osteoarthritis, unspecified site

== ENCOUNTER 2019-11-16 20:41 | Emergency (ER) | payer MEDICARE, BC ==
[~2019-11-16] VITALS: Ht 167.6 cm; Wt 58.2 kg
[2019-11-16 20:50] VITALS: Ht 167.6 cm; Wt 58.2 kg
[2019-11-16] MEDS ORDERED: SINGULAIR10 MG PO (20:53)
[2019-11-16 21:48] LABS: BASOPHILS 0.3 % (0-2); EOSINOPHILS 2.8 % (0-7); HEMATOCRIT 35.3 % (36.0-48.0); HEMOGLOBIN 11.8 g/dL (12-16); LYMPHOCYTES 42.7 % (15-50); MCH 28.4 pg (26.0-34.0); MCHC 33.4 g/dL (31.0-37.0); MCV 84.9 fL (80.0-100.0); MEAN PLATELET VOLUME 8.1 fL (7.4-10.4); MONOCYTES 13.6 % (2-11); NEUTROPHILS 40.6 % (40-80); PLATELET COUNT 260 10x3/uL (130-400); RBC 4.16 10x6/uL (4.00-5.40); RDW 13.1 % (11.5-14.5); WBC 6.1 10x3/uL (4.8-10.8)
[2019-11-16 21:55] LABS: APTT 26.7 SECONDS (22.8-39.4); CALC OSMOLALITY 272 mosm/kg (275-300); CALCIUM 9.7 mg/dL (8.5-10.1); CHLORIDE - SERUM 103 mmol/L (98-107); GLUCOSE 124 mg/dL (74-106); INR 1.01 (0.85-1.17); POTASSIUM - SERUM 3.5 mmol/L (3.5-5.1); PROTIME 13.2 SECONDS (11.6-15.0); SODIUM 136 mmol/L (136-145); UREA NITROGEN 12 mg/dL (7-18); eGFR NON AFRICAN AMERICAN 57 mL/min (90-120)
[2019-11-16 21:56] LABS: D-DIMER-QUANTITATIVE 0.42 ug/mLFEU (0.20-0.54)
[2019-11-16 22:13] LABS: ALBUMIN 3.8 g/dL (3.4-5.0); ALKALINE PHOSPHATASE 115 U/L (30-120); ALT (SGPT) 34 U/L (10-68); CKMB 0.9 U/L (0.0-3.6); CREATINE KINASE 68 UL (21-215); PRO BNP 210 pg/mL (0-450); PROTEIN - SERUM 6.6 g/dL (6.4-8.2); TROPONIN-I < 0.017 ng/mL (0.000-0.060)
[2019-11-16 23:55] VITALS: BP 167/59
== END 2019-11-16 23:55 | disposition home or self-care (01) ==
LOC: D.ER 20:41
PROVIDERS: Emergency Medicine
DX: R06.00 Dyspnea, unspecified (principal); I10 Essential (primary) hypertension; J44.9 Chronic obstructive pulmonary disease, unspecified